=== PATIENT | male | born 1985 ===

== ENCOUNTER 2018-04-07 06:23 | Emergency (ER) | payer MEDICAID, OTHER ==
[~2018-04-07] VITALS: Ht 177.8 cm; Wt 84.0 kg
[2018-04-07 06:29] VITALS: BP 135/88
[2018-04-07] MEDS ORDERED: IBUPROFEN 200 MG TABLET ONE (06:41)
[2018-04-07] MEDS ORDERED: IBUPROFEN 200 MG TABLET PO ONE (07:00)
== END 2018-04-07 07:29 | disposition home or self-care (01) ==
LOC: ED 07:20
DX: S80.02XA Contusion of left knee, initial encounter (principal); F10.220 Alcohol dependence with intoxication, uncomplicated; Z71.41 Alcohol abuse counseling and surveillance of alcoholic; F17.210 Nicotine dependence, cigarettes, uncomplicated; W19.XXXA Unspecified fall, initial encounter; Y93.89 Activity, other specified; Y92.410 Unspecified street and highway as the place of occurrence of the external cause; Y99.8 Other external cause status
CPT/HCPCS: 99283

== ENCOUNTER 2020-12-09 02:10 | Observation (INO) | payer MEDICAID ==
[~2020-12-09] VITALS: Ht 180.3 cm; Wt 78.4 kg
[2020-12-09 02:12] VITALS: BP 144/92
--- NOTE | 2020-12-09 03:59 | NUR ---
Pt provided blankets, water, and urnal at bedside.
[2020-12-09 04:37] LABS: BASOPHILS % (AUTO) 1 % (0-1); EOSINOPHILS % (AUTO) 2 % (1-7); LYMPHOCYTES % (AUTO) 31 % (22-44); MEAN CORPUSCULAR HEMOGLOBIN 30.8 pg (27.5-34.5); MONOCYTES % (AUTO) 11 % (2-9); NEUTROPHILS % (AUTO) 54 % (42-75); PLATELET COUNT 264 x10^3/uL (130-400); RED BLOOD COUNT 5.41 x10^6/uL (4.38-5.82); RED CELL DISTRIBUTION WIDTH 13.4 % (9.4-14.8)
[2020-12-09 04:46] LABS: ALANINE AMINOTRANSFERASE 30 U/L (12-78); ALBUMIN 3.9 g/dL (3.4-5.0); ANION GAP 5 mmol/L (5-15); CALCIUM 8.6 mg/dL (8.5-10.1); CHLORIDE 109 mmol/L (98-107); CREATININE 0.75 mg/dL (0.7-1.3); SALICYLATE LEVEL 2.2 mg/dL (2.8-20.0)
[2020-12-09 04:48] LABS: ALKALINE PHOSPHATASE 138 U/L (45-117); BILIRUBIN,TOTAL 1.2 mg/dL (0.2-1.0)
--- NOTE | 2020-12-09 04:55 | NUR ---
pt resting with eyes closed and blanket over head, provided more water per request
--- NOTE | 2020-12-09 06:19 | NUR ---
pt provided urine sample, and given more water per request
[2020-12-09 06:37] LABS: AMPHETAMINE SCREEN, URINE Positive (Negative); BARBITURATE SCREEN, URINE Negative (Negative); BENZODIAZEPINE SCREEN, URINE Negative (Negative); CANNABINOID SCREEN, URINE Negative (Negative); COCAINE SCREEN, URINE Negative (Negative); METHADONE SCREEN, URINE Negative (Negative); OPIATE SCREEN, URINE Negative (Negative)
--- NOTE | 2020-12-09 07:06 | NUR ---
PT RESTING CALMLY IN BED WITH EYES CLOSED. NO STATED NEEDS AT THIS TIME. WILL CONTINUE TO MONITOR.
--- NOTE | 2020-12-09 08:03 | NUR ---
PT AWAKE, NO STATED NEEDS CURRENTLY. WILL CONTINUE TO MONITOR. SITTER AT DOOR FOR OBS.
--- NOTE | 2020-12-09 09:31 | NUR ---
PT GIVEN BREAKFAST TRAY. SITTER AT DOOR FOR FREQUENT OBS. PT ASKING ABOUT MEDS FOR HIS METH AND KLONIPIN ADDICTIONS. PT INFORMED THE PSYCH BRICK MOLDER HAND WILL BE IN LATER TO TALK TO HIM. PT STATED HE ALREADY TALKED TO TELEPSYCH DOC. STILL AWAITING THEIR FAXED REPORT.
--- NOTE | 2020-12-09 10:00 | NUR ---
2 BLACK TENNIS KSHOES REMOVED FROM ROOM AND ADDED TO PT BELONGINGS BIN IN CLOTHING CLOSET.
--- NOTE | 2020-12-09 10:08 | NUR ---
VSS, PT RESTING IN BED. PT CONTINUING TO ASK TO SPEAK WITH A DOCTOR ABOUT MEDS. PT AWARE PSYCH FELT WASHING MACHINE TENDER WILL BE HERE. SITTER AT DOOR.
[2020-12-09] MEDS ORDERED: ESCI20TA10 PO (10:18)
[2020-12-09] MEDS ORDERED: CLON1TAB PO (10:18)
[2020-12-09] MEDS ORDERED: QUET300T5 PO (10:18)
--- NOTE | 2020-12-09 11:07 | NUR ---
PT RESTING CALMLY IN BED. NO STATED NEEDS AT THIS TIME. SITTER AT DOOR FOR OBS.
--- NOTE | 2020-12-09 12:20 | NUR ---
PT RESTING CALMLY IN BED AT THIS TIME. WILL CONTINUE TO MONITOR.
[2020-12-09] MEDS ORDERED: LORazepam 1MG TABLET ONE (13:18)
[2020-12-09] MEDS ORDERED: LORazepam 1MG TABLET PO ONE (13:30)
[2020-12-09] MEDS ORDERED: QUETIAPINE 100MG TABLET PO SCH (21:00)
== END 2020-12-09 14:29 | disposition home or self-care (01) ==
LOC: ED 02:58 → EDIP 04:13 → INTOOBSV 04:13 → UNDODISIN 14:29
PROVIDERS: ADMIT Emergency Medicine; ATTEND Emergency Medicine
DX: F29 Unspecified psychosis not due to a substance or known physiological condition (principal); F41.1 Generalized anxiety disorder; R45.851 Suicidal ideations; F10.220 Alcohol dependence with intoxication, uncomplicated; F15.20 Other stimulant dependence, uncomplicated; F17.210 Nicotine dependence, cigarettes, uncomplicated; Z79.899 Other long term (current) drug therapy
CPT/HCPCS: 36415; 80053; 80299; 80307; 80320; 80329; 85025; 99284; G0378; G0480